=== PATIENT | female | born 1975 | race Caucasian/White ===

== ENCOUNTER → 2017-12-06 | Outpatient (CLI) | payer OTHER ==
[~2017-12-06] MED LIST: ADDERALL10 MG PO; ADDERALL20 MG PO; ADDERALL30 MG PO; ALBUTEROL SULF8.5 GM IH; Ambien PO; BACTRIM,SEPT1 TABLET PO; BENADRYL25 MG PO; BUPROPION HCL100 M1 PO; BUPROPION HCL150 M2 PO; BUPROPION XL150 MG; BUPROPION XL300 MG PO; CIPROFLOXACIN H10 ML LEFT EYE; CITRATE OF MAG296 ML PO; CLEOCIN300 MG PO; CLINDAMYCIN HC300 MG PO; CYMBALTA60 MG; CYMBALTA60 MG PO; Cymbalta PO; DARVOCET; DESYREL12.5 MG PO; DOCUSATE SODIU100 MG PO; ENDOCET 5-3251 EACH PO; GLUCOPHAGE500 MG PO; HYDROCODON-ACE1 EAC7 PO; HYDROMORPHONE HC2 MG PO; HYDROXYZINE PAM50 MG PO; LATUDA120 MG PO; LATUDA60 MG PO; LATUDA80 MG PO; Levaquin PO; METHADONE 22 MG/1 ML PO; METHADONE H5 MG/5 ML PO; METHADONE10 MG PO; METHADONE5 MG PO; METOPROLOL TART50 MG PO; MOTRIN800 MG PO; NOHOMEMEDS; PATANOL OP100 DROP/5 LEFT EYE; PAXIL20 MG PO; PERCOCET 10/1 TABLET PO; PERCOCET 5/31 TABLET PO; PHENAZOPYRIDIN100 MG PO; PROAIR HFA8.5 GM; PROAIR HFA8.5 GM IH; PROMETHAZINE-D120 ML PO; REGLAN10 MG PO; REGLAN10 MG/10 M PO; RISPERDAL1 MG PO; RISPERDAL2 MG PO; RISPERDAL3 MG PO; RISPERDAL4 MG PO; RISPERIDONE4 MG; RISPERIDONE4 MG PO; SUBOXONE 8 M1 TABLET SL; Suboxone 8 mg-2 mg PO; TOPAMAX50 MG PO; TRAMADOL HCL50 MG PO; TRAZODONE HCL50 MG PO; ULTRAM; ULTRAM50 MG PO; VICODIN,LORT1 TABLET PO; VOLTARIN; WELLBUTRIN SR150 MG PO; WELLBUTRIN XL150 MG PO; WELLBUTRIN XL300 MG PO; WELLBUTRIN75 MG PO; ZANTAC150 MG PO; ZYVOX600 MG PO; [UNRECOGNIZED DRUG - OTHER] PO; blood pressure; risperDAL PO
== END | disposition home or self-care (01) ==
LOC: CDC 08:30
DX: Z01.810 Encounter for preprocedural cardiovascular examination (principal); K80.20 Calculus of gallbladder without cholecystitis without obstruction; R00.1 Bradycardia, unspecified
CPT/HCPCS: 93000

== ENCOUNTER 2017-12-14 09:49 | Day surgery (SDC) | payer OTHER ==
[~2017-12-14] VITALS: Ht 160 cm; Wt 113.4 kg
[~2017-12-14 09:49] MED LIST changes: +AMBIEN5 MG PO; +ATARAX,VISTARIL50 MG PO; +DESYREL100 MG PO; +KLONOPIN0.5 M1 PO; -LATUDA60 MG PO; +TYLENOL EXTRA500 MG PO
[2017-12-14 10:41] VITALS: BP 136/77
[2017-12-14 10:54] LABS: BENZODIAZEPINES, URINE SCREEN Negative (200 ng/mL)
[2017-12-14] MEDS ORDERED: ONDANSETRON HCL8 MG PO (14:51)
[2017-12-14] MEDS ORDERED: DILAUDID4 MG PO (14:51)
[2017-12-14] MEDS ORDERED: COLACE100 MG PO (14:51)
[2017-12-14 16:03] VITALS: BP 119/58
[2017-12-14 17:20] VITALS: BP 126/83
== END 2017-12-14 17:46 | disposition home or self-care (01) ==
LOC: SDC
PROVIDERS: Surgery
PROC: 0FT44ZZ Resection of Gallbladder, Percutaneous Endoscopic Approach (ICD-10-PCS; principal; 2017-12-14)
DX: K80.10 Calculus of gallbladder with chronic cholecystitis without obstruction (principal); D64.9 Anemia, unspecified; F31.9 Bipolar disorder, unspecified; Z86.14 Personal history of Methicillin resistant Staphylococcus aureus infection; E11.9 Type 2 diabetes mellitus without complications; Z79.84 Long term (current) use of oral hypoglycemic drugs; Z81.8 Family history of other mental and behavioral disorders; Z80.0 Family history of malignant neoplasm of digestive organs; Z88.5 Allergy status to narcotic agent
CPT/HCPCS: 80306 90; 87641; 88304; J0330; J0690; J1100; J1170; J2250; J2405; J2710; J2765; J3010

== ENCOUNTER 2018-02-19 10:05 | Emergency (ER) | payer OTHER ==
[~2018-02-19] VITALS: Ht 160 cm; Wt 113.9 kg
[~2018-02-19 10:05] MED LIST changes: +COLACE100 MG PO; +DILAUDID4 MG PO; +ONDANSETRON HCL8 MG PO
[2018-02-19 11:00] LABS: APPEARANCE CLOUDY ((CLEAR)); BILIRUBIN NEGATIVE; BLOOD SMALL; COLOR YELLOW ((YELLOW)); GLUCOSE (STRIP) NEGATIVE; KETONES NEGATIVE; LEUKOCYTES NEGATIVE; NITRITE NEGATIVE; PROTEIN (STRIP) 30; UROBILINOGEN 0.2 MG/DL (0.2-1.0)
[2018-02-19 11:08] LABS: BACTERIA RARE /HPF; EPITHELIAL CELLS 3+ /HPF; MUCUS 3+ /LPF; RED BLOOD CELLS 0-5 /HPF (0-5); UCUL ADDED? NO; WHITE BLOOD CELLS 0-5 /HPF (0-5)
[2018-02-19 11:12] LABS: HEMOGLOBIN 14.3 G/DL (11.9-15.5); MCH 30.6 PG (29.0-34.0); MCHC 34.9 G/DL (30.0-36.0); MCV 87.8 FL (83-99); PLATELET COUNT 310 K/uL (156-360); RBC DIS.WIDTH-CV 11.9 % (11.8-14.6); RBC DIS.WIDTH-SD 38.4 % (39-53); RED BLOOD COUNT 4.67 M/uL (3.80-5.20); WHITE BLOOD COUNT 7.4 K/uL (4.1-10.2)
[2018-02-19 11:25] LABS: ALBUMIN 4.7 g/dL (3.2-4.8); CHLORIDE 106 mEq/L (99-109); POTASSIUM 3.9 mEq/L (3.7-5.4); SODIUM 139 mEq/L (136-147)
[2018-02-19 11:27] LABS: GLUCOSE 97 mg/dL (70-99)
[2018-02-19 11:28] LABS: TOTAL PROTEIN 8.4 g/dL (6.4-8.3)
[2018-02-19 11:29] LABS: TOTAL BILIRUBIN 0.6 mg/dL (0.0-1.0)
[2018-02-19 11:31] LABS: ALKALINE PHOSPHATASE 85 IU/L (3-129); CREATININE 0.9 mg/dL (0.6-1.3); GFR ESTIMATE (CALCULATED) > 59 mL/min/
[2018-02-19 11:32] LABS: UREA NITROGEN (BUN) 9 mg/dL (9-23)
[2018-02-19 11:33] LABS: AST (GOT) 19 IU/L (2-34)
[2018-02-19 11:34] LABS: ALT (GPT) 14 IU/L (3-49)
[2018-02-19 12:27] LABS: QUANTITATIVE HCG < 4.0 MIU/ML
[2018-02-19 14:02] LABS: C DIFF TOXIN NEGATIVE (NEGATIVE)
[2018-02-19] MEDS ORDERED: ZOFRAN4 MG PO (14:32)
[2018-02-19 14:43] VITALS: BP 114/70
== END 2018-02-19 14:45 | disposition home or self-care (01) ==
LOC: EME 10:05
PROVIDERS: Emergency Medicine
DX: R10.9 Unspecified abdominal pain (principal); R11.2 Nausea with vomiting, unspecified; R19.7 Diarrhea, unspecified; K21.9 Gastro-esophageal reflux disease without esophagitis; Z90.49 Acquired absence of other specified parts of digestive tract; Z87.891 Personal history of nicotine dependence; Z88.5 Allergy status to narcotic agent; Z88.1 Allergy status to other antibiotic agents
CPT/HCPCS: 74177; 80053; 81003; 84702; 85027; 87493; 99281; 99285; J2405; J7030